=== PATIENT | female | born 1970 | race Asian ===

== ENCOUNTER 2019-03-14 01:32 | Inpatient (IN) | payer OTHER ==
[~2019-03-14] VITALS: Ht 158.8 cm; Wt 63.5 kg
[2019-03-14 01:36] VITALS: BP_SYST 220
[2019-03-14] MEDS ORDERED: LABETALOL 100 MG/ 20ML VIAL IVP ONE ×4 (01:45→05:00)
[2019-03-14] MEDS ORDERED: NS 500 ML IV ONE (01:45)
[2019-03-14 02:11] LABS: BASOPHILS # (AUTO) 0.1 K/uL (0.0-0.2); BASOPHILS % (AUTO) 0.6 % (0.0-2.0); EOSINOPHILS # (AUTO) 0.1 K/uL (0.0-0.4); EOSINOPHILS % (AUTO) 1.2 % (0.0-4.0); HEMATOCRIT 40.2 % (36-48); HEMOGLOBIN 13.6 g/dL (12.0-16.0); LYMPHOCYTES # (AUTO) 3.5 K/uL (1.0-5.5); LYMPHOCYTES % (AUTO) 32.3 % (20.5-51.5); MEAN CORPUSCULAR HEMOGLOBIN 31 pg (27-31); MEAN CORPUSCULAR HGB CONC 34 % (32-36); MEAN CORPUSCULAR VOLUME 92 fL (79.0-98.0); MONOCYTES # (AUTO) 0.8 K/uL (0.0-1.0); MONOCYTES % (AUTO) 7.7 % (1.7-9.3); NEUTROPHILS # (AUTO) 6.3 K/uL (1.8-7.7); NEUTROPHILS % (AUTO) 58.2 % (40.0-70.0); PLATELET COUNT (AUTO) 417 K/uL (130-430); RED BLOOD CELL COUNT(AUTO) 4.38 MIL/uL (4.2-6.2); RED CELL DISTRIBUTION WIDTH 12.7 % (9.0-15.0); WHITE BLOOD COUNT (AUTO) 10.9 K/uL (4.8-10.8)
[2019-03-14 02:19] LABS: CALCIUM 9.3 mg/dL (8.4-11.0); CREATININE 0.9 mg/dL (0.55-1.30); POTASSIUM 3.3 mmol/L (3.5-5.1)
[2019-03-14] MEDS ORDERED: ASPIRIN 81 MG TAB.CHEW PO ONE ×2 (02:30)
[2019-03-14 02:38] LABS: BARBITURATE, URINE NEGATIVE (NEG <=200); BENZODIAZEPINE, URINE NEGATIVE (NEG <=150); CANNABINOID, URINE NEGATIVE (NEG <=50); COCAINE, URINE NEGATIVE (NEG <=150); METHAMPHETAMINES SCREEN,URINE NEGATIVE (NEG <=500); URINE AMPHETAMINE NEGATIVE (NEG <=500); URINE METHADONE NEGATIVE (NEG <=200)
[2019-03-14 02:38] LABS: ALBUMIN 4.1 g/dL (3.4-4.8); FREE T4 (FREE THYROXINE) 0.9 ng/dl (0.8-1.5); THYROID STIMULATING HORMONE 3.5 uIu/mL (0.36-3.74); TOTAL BILIRUBIN 0.4 mg/dL (0.0-1.0)
[2019-03-14 02:39] LABS: OPIATE, URINE NEGATIVE (NEG <=100); PHENCYCLIDINE SCREEN,URINE NEGATIVE (NEG <=25); UR TRICYCLIC ANTIDEPRESSANTS NEGATIVE (NEG <=300); URINE OXYCODONE SCREEN NEGATIVE (NEG <=100); URINE PROPOXYPHENE SCREEN NEGATIVE (NEG <=300)
[2019-03-14] MEDS ORDERED: ASPIRIN 81 MG TAB.CHEW ONE (02:43)
[2019-03-14] MEDS ORDERED: IOHEXOL 350 mgI/mL, 150 ML INFUS..BTL IV ONE (04:02)
[2019-03-14 07:19] VITALS: BP_SYST 168
[2019-03-14] MEDS ORDERED: POTASSIUM CHLORIDE 10 MEQ TAB.PRT.SR PO ONE (08:45)
[2019-03-14] MEDS ORDERED: ACETAMINOPHEN 325 MG TABLET PO PRN (08:45)
[2019-03-14] MEDS ORDERED: LISINOPRIL 10 MG TABLET (PRINIVIL) PO SCH (09:00)
[2019-03-14] MEDS: ASPIRIN 81 MG TABLET(ECOTRIN) PO SCH (09:53)
[2019-03-14] MEDS: METOPROLOL TARTRATE 25 MG TABLET PO SCH ×2 (09:54→21:09)
[2019-03-14] MEDS: FAMOTIDINE 20 MG TABLET PO SCH (09:54)
[2019-03-14 11:32] VITALS: BP_SYST 168
[2019-03-14] MEDS ORDERED: LISINOPRIL 10 MG TABLET (PRINIVIL) PO ONE (11:45)
[2019-03-14] MEDS ORDERED: ALPRAZolam 0.25 MG TABLET PO PRN (11:45)
[2019-03-14] MEDS ORDERED: hydrALAZINE HCL 10 MG TABLET PO PRN (11:45)
[2019-03-14 15:37] VITALS: BP_SYST 153
[2019-03-14 16:13] LABS: BILIRUBIN,URINE NEGATIVE (NEGATIVE); BLOOD, URINE NEGATIVE (NEGATIVE); CLARITY/URINE HAZY (CLEAR); COLOR,URINE YELLOW (YELLOW); GLUCOSE,URINE NEGATIVE (NEGATIVE); KETONES,URINE NEGATIVE (NEGATIVE); LEUKOCYTE ESTERASE ,URINE 1+ (NEGATIVE); NITRITE, URINE NEGATIVE (NEGATIVE); PROTEIN URINE NEGATIVE (NEGATIVE); UROBILINOGEN,URINE 0.2 (0.2-1.0)
[2019-03-14 16:16] LABS: BACTERIA,URINE MANY /HPF (None Seen); RBC,URINE NONE SEEN /HPF (0-3)
[2019-03-14 16:17] LABS: MUCUS,URINE None Seen /LPF (None Seen)
[2019-03-14 20:00] VITALS: BP_SYST 159
[2019-03-15 00:48] VITALS: BP_SYST 128
[2019-03-15 03:26] LABS: BASOPHILS # (AUTO) 0.2 K/uL (0.0-0.2); BASOPHILS % (AUTO) 2.2 % (0.0-2.0); EOSINOPHILS # (AUTO) 0.2 K/uL (0.0-0.4); EOSINOPHILS % (AUTO) 1.6 % (0.0-4.0); HEMATOCRIT 37.3 % (36-48); HEMOGLOBIN 12.8 g/dL (12.0-16.0); LYMPHOCYTES # (AUTO) 3.1 K/uL (1.0-5.5); LYMPHOCYTES % (AUTO) 29.9 % (20.5-51.5); MEAN CORPUSCULAR HEMOGLOBIN 31 pg (27-31); MEAN CORPUSCULAR HGB CONC 34 % (32-36); MEAN CORPUSCULAR VOLUME 91 fL (79.0-98.0); MONOCYTES # (AUTO) 0.7 K/uL (0.0-1.0); MONOCYTES % (AUTO) 6.7 % (1.7-9.3); NEUTROPHILS # (AUTO) 6.3 K/uL (1.8-7.7); NEUTROPHILS % (AUTO) 59.6 % (40.0-70.0); PLATELET COUNT (AUTO) 372 K/uL (130-430); RED BLOOD CELL COUNT(AUTO) 4.08 MIL/uL (4.2-6.2); RED CELL DISTRIBUTION WIDTH 12.7 % (9.0-15.0); WHITE BLOOD COUNT (AUTO) 10.5 K/uL (4.8-10.8)
[2019-03-15 03:56] LABS: CALCIUM 9.4 mg/dL (8.4-11.0); CREATININE 0.95 mg/dL (0.55-1.30); POTASSIUM 3.6 mmol/L (3.5-5.1); THYROID STIMULATING HORMONE 0.32 uIu/mL (0.34-4.82)
[2019-03-15 08:11] VITALS: BP_SYST 133
[2019-03-15] MEDS: ASPIRIN 81 MG TABLET(ECOTRIN) PO SCH (08:48)
[2019-03-15] MEDS: METOPROLOL TARTRATE 25 MG TABLET PO SCH (08:48)
[2019-03-15] MEDS: FAMOTIDINE 20 MG TABLET PO SCH (08:49)
[2019-03-15] MEDS ORDERED: LISINOPRIL 20 MG TABLET PO SCH (09:00)
[2019-03-15 11:22] VITALS: BP_SYST 154
[2019-03-15 15:00] VITALS: BP_SYST 154
[2019-03-15 16:09] VITALS: BP_SYST 144
[2019-03-15] MEDS ORDERED: LISI-600 PO (16:22)
[2019-03-15] MEDS ORDERED: METO50TA7 PO (16:22)
[2019-03-16] MEDS ORDERED: METOPROLOL SUCCINATE 50 MG TAB.SR.24H (TOPROL XL) PO SCH (09:00)
== END 2019-03-15 16:41 | disposition home or self-care (01) | DRG 305 ==
LOC: SED 01:32 → STU 06:49
PROVIDERS: ADMIT Internal Medicine; ATTEND Internal Medicine
DX: I16.1 Hypertensive emergency (principal); I11.9 Hypertensive heart disease without heart failure; E87.6 Hypokalemia; F41.9 Anxiety disorder, unspecified; D25.9 Leiomyoma of uterus, unspecified; R00.2 Palpitations; E05.90 Thyrotoxicosis, unspecified without thyrotoxic crisis or storm; Z82.49 Family history of ischemic heart disease and other diseases of the circulatory system; Z91.19 Patient's noncompliance with other medical treatment and regimen
CPT/HCPCS: 36415; 71045; 71275; 74175; 80048; 80053; 80061; 80307; 81000-TC; 82550-TC; 83735-TC; 83880; 84439; 84443-TC; 84484; 85025; 87086; 87186-TC; 93005; 93306; 96361; 96374; 96376; 99291; G0378; J3490; Q9967